=== PATIENT | male | born 1945 | race Two or more races ===

== ENCOUNTER 2017-07-17 13:51 | Inpatient (IN) | payer MEDICARE, MEDICAID ==
[~2017-07-17] VITALS: Ht 177.8 cm; Wt 78.0 kg
[~2017-07-17 13:51] MED LIST: FLUT250M2 INH; LEVO-28 PO; PANT40T PO
[2017-07-17 15:13] LABS: Basophils # (auto) 0 uL; Basophils % (auto) 0.6 % (0.0-2.0); Eosinophils # (auto) 0 uL; Eosinophils % (auto) 0.2 % (0.0-7.0); Hematocrit 50.7 % (41.0-53.0); Hemoglobin 16.4 g/dL (13.5-17.5); Lymphocytes # (auto) 1.1 uL; Lymphocytes % (auto) 16.1 % (10.0-50.0); Mean Corpuscular Hemoglobin 32.3 pg (28.0-32.0); Mean Corpuscular Hgb Conc. 32.3 g/dL (32.0-36.0); Mean Corpuscular Volume 100.1 fL (80.0-100.0); Monocytes # (auto) 0.6 uL; Monocytes % (auto) 9.6 % (0.0-12.0); Neutrophils # (auto) 4.9 uL; Neutrophils % (auto) 73.5 % (37.0-80.0); Nucleated Red Blood Cells % 0.3 %; Platelet Count (auto) 139 10^3/uL (140-450); Red Blood Cells 5.07 10^6/uL (4.5-5.90); Red Cell Distribution Width 17.2 % (11.8-14.3); White Blood Cell 6.7 10^3/uL (4.4-10.8)
[2017-07-17 15:51] LABS: INR 1.24 (0.9-1.15); Partial Thromboplastin Time 26.5 sec (22.64-33.71); Prothrombin Time 13.5 sec (9.37-12.3)
[2017-07-17 15:55] LABS: Potassium 3.6 mmol/L (3.5-5.1)
[2017-07-17 15:57] LABS: Albumin 3.7 g/dL (3.4-5.0); Bilirubin, Total 1.6 mg/dL (0.2-1.0); Magnesium 2.4 mg/dL (1.6-2.6); Total Protein 8.2 g/dL (6.4-8.2)
[2017-07-17] MEDS ORDERED: URSO300C9 PO (15:58)
[2017-07-17] MEDS ORDERED: ASPI81TA27 PO (15:58)
[2017-07-17] MEDS ORDERED: IBUP800T24 PO (15:58)
[2017-07-17] MEDS ORDERED: ESOM0.1C PO (15:58)
[2017-07-17] MEDS ORDERED: ROSU1TAB6 PO (15:58)
[2017-07-17] MEDS ORDERED: FURO40TA4 PO (15:58)
[2017-07-17] MEDS ORDERED: POTA10TA79 PO (15:58)
[2017-07-17] MEDS ORDERED: INSLANTI SC (15:59)
[2017-07-17] MEDS ORDERED: ONDANSETRON HCL 4 MG/2 ML VIAL IV ONE (16:15)
[2017-07-17] MEDS ORDERED: ASPirin-EC 81 mg tab PO ONE (16:15)
[2017-07-17] MEDS ORDERED: MORPHINE SULFATE 4 MG/ML SYR/VIAL IV ONE (16:15)
[2017-07-17] MEDS ORDERED: ZOLPIDEM TARTRATE 5 MG TAB PO PRN (17:00)
[2017-07-17] MEDS ORDERED: LORazepam 0.5 MG TAB PO PRN (17:00)
[2017-07-17] MEDS ORDERED: NITROGLYCERIN 0.4 MG SL TAB SL PRN ×2 (17:00)
[2017-07-17] MEDS ORDERED: MORPHINE SULF INJ 2 MG/ML SYRINGE 1ML IV PRN (17:00)
[2017-07-17] MEDS ORDERED: KETOROLAC TROMETH 30 MG/ML 1ML VIAL IV PRN (17:00)
[2017-07-17] MEDS ORDERED: ACETAMINOPHEN 325 MG TAB PO PRN (17:00)
[2017-07-17] MEDS ORDERED: ALUM & MAG HYDROX-SIMETH LIQ(MAALOX) 30 ML PO ONE (17:00)
[2017-07-17] MEDS ORDERED: PANTOPRAZOLE 40 MG/10 ML VIAL IV ONE (17:15)
[2017-07-17] MEDS ORDERED: DEXTROSE (50%) 50ML SYRG IV PRN (17:15)
[2017-07-17] MEDS ORDERED: POTASSIUM CHL 10 Meq TABLET PO ONE (17:30)
[2017-07-17] MEDS ORDERED: FUROSEMIDE 40 MG TAB PO ONE (17:30)
[2017-07-17] MEDS ORDERED: ALBUTEROL SULF 2.5 MG/0.5ML(0.5%) NEB SOLN NEB SCH (18:00)
[2017-07-17 21:32] VITALS: BP 120/86
[2017-07-17] MEDS: InsuLIN REG 1unit/0.01ml Soln (100units/ml) SC SCH (22:00)
[2017-07-17] MEDS: ENALAPRIL MALEATE 2.5 MG TAB PO SCH (22:00)
[2017-07-17] MEDS: BUDESONIDE (INHALATION) 0.5 MG/2 ML NEB NEB SCH (22:14)
[2017-07-17] MEDS: IPRATROPIUM BROM 0.5 MG/2.5ML INH SOL NEB SCH (22:14)
[2017-07-17] MEDS: SODIUM CHLOR 0.9% PF (SALINE LOCK) 10ML VIAL IV SCH (22:19)
[2017-07-17] MEDS: ENOXAPARIN SOD 80 MG/0.8ML SYRINGE SC SCH (22:19)
[2017-07-17] MEDS: ATORVASTATIN 20 MG TAB PO SCH (22:19)
[2017-07-17] MEDS: CARVEDILOL 3.125 MG TAB PO SCH (22:19)
[2017-07-17] MEDS: ACCU-CHEK COMFORT CURVE STRIP VI SCH (22:19)
[2017-07-18] VITALS (19 sets, daily range): BP systolic 78–97; BP diastolic 40–58
[2017-07-18] MEDS ORDERED: ALBUTEROL SULF 2.5 MG/0.5ML(0.5%) NEB SOLN NEB SCH
[2017-07-18] MEDS: MORPHINE SULFATE 4 MG/ML SYR/VIAL IV PRN ×2 (00:36→09:09)
[2017-07-18] MEDS: ONDANSETRON HCL 4 MG/2 ML VIAL IV PRN ×2 (00:36→09:10)
[2017-07-18] MEDS: BUDESONIDE (INHALATION) 0.5 MG/2 ML NEB NEB SCH ×2 (05:48→22:23)
[2017-07-18] MEDS: ALBUTEROL SULF 2.5 MG/0.5ML(0.5%) NEB SOLN NEB SCH ×3 (05:48→22:23)
[2017-07-18] MEDS: IPRATROPIUM BROM 0.5 MG/2.5ML INH SOL NEB SCH ×3 (05:48→22:23)
[2017-07-18] MEDS: SODIUM CHLOR 0.9% PF (SALINE LOCK) 10ML VIAL IV SCH ×3 (05:52→22:15)
[2017-07-18] MEDS: ACCU-CHEK COMFORT CURVE STRIP VI SCH ×4 (06:05→22:16)
[2017-07-18 06:13] LABS: Basophils # (auto) 0 uL; Basophils % (auto) 0.3 % (0.0-2.0); Eosinophils # (auto) 0 uL; Eosinophils % (auto) 0.1 % (0.0-7.0); Hematocrit 49.7 % (41.0-53.0); Lymphocytes % (auto) 15.4 % (10.0-50.0); Mean Corpuscular Hemoglobin 32.6 pg (28.0-32.0); Mean Corpuscular Hgb Conc. 32.2 g/dL (32.0-36.0); Mean Corpuscular Volume 101.2 fL (80.0-100.0); Monocytes # (auto) 0.9 uL; Monocytes % (auto) 14.3 % (0.0-12.0); Neutrophils # (auto) 4.5 uL; Neutrophils % (auto) 69.9 % (37.0-80.0); Nucleated Red Blood Cells % 0.2 %; Platelet Count (auto) 130 10^3/uL (140-450); Red Blood Cells 4.91 10^6/uL (4.5-5.90); Red Cell Distribution Width 17.5 % (11.8-14.3); White Blood Cell 6.5 10^3/uL (4.4-10.8)
[2017-07-18 06:15] LABS: Albumin 3.2 g/dL (3.4-5.0); Bilirubin, Total 1.5 mg/dL (0.2-1.0); Calcium 8.5 mg/dL (8.5-10.1); Magnesium 2.6 mg/dL (1.6-2.6); Potassium 4.2 mmol/L (3.5-5.1); Total Protein 7.2 g/dL (6.4-8.2)
[2017-07-18] MEDS: InsuLIN REG 1unit/0.01ml Soln (100units/ml) SC SCH ×4 (06:28→22:15)
[2017-07-18] MEDS ORDERED: INSULIN LANTUS (GLARGINE) 1 /0.01ml (100units/ml) SC SCH (07:00)
[2017-07-18] MEDS: CARVEDILOL 3.125 MG TAB PO SCH (10:00)
[2017-07-18] MEDS: POTASSIUM CHL 10 Meq TABLET PO SCH (10:00)
[2017-07-18] MEDS ORDERED: FUROSEMIDE 40 MG TAB PO SCH (10:00)
[2017-07-18] MEDS: ENALAPRIL MALEATE 2.5 MG TAB PO SCH ×2 (10:00→21:57)
[2017-07-18] MEDS: ENOXAPARIN SOD 80 MG/0.8ML SYRINGE SC SCH ×2 (10:29→21:58)
[2017-07-18] MEDS: DOCUSATE SOD 100 MG CAP PO SCH (10:29)
[2017-07-18] MEDS: CLOPIDOGREL BISULFATE 75 MG TAB PO SCH (10:30)
[2017-07-18] MEDS: ASPirin 81 mg TAB PO SCH (10:30)
[2017-07-18] MEDS: PANTOPRAZOLE 40 MG/10 ML VIAL IV SCH (10:31)
[2017-07-18] MEDS ORDERED: FUROSEMIDE 20 MG/2 ML VIAL IV ONE (12:00)
[2017-07-18] MEDS ORDERED: SODIUM BICARBONATE 8.4 % INJ 50ML VIAL IV ONE (12:00)
[2017-07-18] MEDS: DOBUTamine 1000MCG/ML 250 ML IV SCH (13:45)
[2017-07-18] MEDS ORDERED: FUROSEMIDE 40 MG/4 ML VIAL ONE (14:15)
[2017-07-18] MEDS ORDERED: FUROSEMIDE 40 MG/4 ML VIAL IV ONE (14:30)
[2017-07-18] MEDS: FUROSEMIDE 20 MG/2 ML VIAL IV SCH (18:20)
[2017-07-18] MEDS: ATORVASTATIN 20 MG TAB PO SCH (21:57)
[2017-07-18] MEDS ORDERED: ALBUMIN 5% 250 ML IV ONE (22:45)
[2017-07-19] VITALS (54 sets, daily range): BP systolic 74–135; BP diastolic 32–72
[2017-07-19 03:31] LABS: BUN/Creatinine Ratio 16.7; Calcium 8.1 mg/dL (8.5-10.1); Potassium 3.7 mmol/L (3.5-5.1)
[2017-07-19] MEDS: SODIUM CHLOR 0.9% PF (SALINE LOCK) 10ML VIAL IV SCH ×3 (06:00→21:44)
[2017-07-19] MEDS: FUROSEMIDE 20 MG/2 ML VIAL IV SCH ×2 (06:00→17:22)
[2017-07-19] MEDS: INSULIN LANTUS (GLARGINE) 1 /0.01ml (100units/ml) SC SCH (07:00)
[2017-07-19] MEDS ORDERED: FUROSEMIDE 100 MG/10ML VIAL IV ONE (09:00)
[2017-07-19] MEDS: DOCUSATE SOD 100 MG CAP PO SCH (09:49)
[2017-07-19] MEDS: PANTOPRAZOLE 40 MG/10 ML VIAL IV SCH (09:49)
[2017-07-19] MEDS: CLOPIDOGREL BISULFATE 75 MG TAB PO SCH (09:49)
[2017-07-19] MEDS: ENALAPRIL MALEATE 2.5 MG TAB PO SCH (09:49)
[2017-07-19] MEDS: POTASSIUM CHL 10 Meq TABLET PO SCH (09:49)
[2017-07-19] MEDS: ASPirin 81 mg TAB PO SCH (09:50)
[2017-07-19] MEDS: ENOXAPARIN SOD 80 MG/0.8ML SYRINGE SC SCH (09:50)
[2017-07-19] MEDS: BUDESONIDE (INHALATION) 0.5 MG/2 ML NEB NEB SCH ×2 (10:00→22:00)
[2017-07-19] MEDS: DOBUTamine 1000MCG/ML 250 ML IV SCH (10:17)
[2017-07-19] MEDS: IPRATROPIUM BROM 0.5 MG/2.5ML INH SOL NEB SCH ×2 (10:43→22:00)
[2017-07-19] MEDS: ALBUTEROL SULF 2.5 MG/0.5ML(0.5%) NEB SOLN NEB SCH ×2 (10:43→22:00)
[2017-07-19] MEDS: InsuLIN REG 1unit/0.01ml Soln (100units/ml) SC SCH ×3 (11:30→21:54)
[2017-07-19] MEDS ORDERED: FUROSEMIDE 40 MG/4 ML VIAL IV ONE (11:30)
[2017-07-19] MEDS: ACCU-CHEK COMFORT CURVE STRIP VI SCH ×3 (11:30→21:53)
[2017-07-19 16:31] LABS: Potassium 3.5 mmol/L (3.5-5.1)
[2017-07-19 16:36] LABS: Magnesium 2.1 mg/dL (1.6-2.6)
[2017-07-19] MEDS: ATORVASTATIN 20 MG TAB PO SCH (21:44)
[2017-07-20] VITALS (51 sets, daily range): BP systolic 92–142; BP diastolic 46–92
[2017-07-20 03:51] LABS: Basophils # (auto) 0 uL; Basophils % (auto) 0.3 % (0.0-2.0); Eosinophils # (auto) 0 uL; Hematocrit 39.4 % (41.0-53.0); Hemoglobin 13.2 g/dL (13.5-17.5); Lymphocytes # (auto) 0.9 uL; Lymphocytes % (auto) 13.1 % (10.0-50.0); Mean Corpuscular Hemoglobin 32.9 pg (28.0-32.0); Mean Corpuscular Hgb Conc. 33.5 g/dL (32.0-36.0); Mean Corpuscular Volume 98.1 fL (80.0-100.0); Monocytes # (auto) 0.5 uL; Monocytes % (auto) 7.6 % (0.0-12.0); Neutrophils # (auto) 5.2 uL; Nucleated Red Blood Cells % 0.1 %; Platelet Count (auto) 100 10^3/uL (140-450); Red Blood Cells 4.02 10^6/uL (4.5-5.90); Red Cell Distribution Width 16.6 % (11.8-14.3); White Blood Cell 6.6 10^3/uL (4.4-10.8)
[2017-07-20 04:16] LABS: Albumin 2.8 g/dL (3.4-5.0); BUN/Creatinine Ratio 21.8; Bilirubin, Total 1.2 mg/dL (0.2-1.0); Calcium 7.9 mg/dL (8.5-10.1); Magnesium 2.1 mg/dL (1.6-2.6); Phosphorus 2.3 mg/dL (2.5-4.90); Potassium 3.3 mmol/L (3.5-5.1); Total Protein 5.9 g/dL (6.4-8.2)
[2017-07-20 04:17] LABS: Uric Acid 11.6 mg/dL (3.5-7.2)
[2017-07-20] MEDS: SODIUM CHLOR 0.9% PF (SALINE LOCK) 10ML VIAL IV SCH ×3 (06:00→21:36)
[2017-07-20] MEDS: ALBUTEROL SULF 2.5 MG/0.5ML(0.5%) NEB SOLN NEB SCH ×3 (06:05→22:35)
[2017-07-20] MEDS: BUDESONIDE (INHALATION) 0.5 MG/2 ML NEB NEB SCH ×2 (06:05→22:36)
[2017-07-20] MEDS: IPRATROPIUM BROM 0.5 MG/2.5ML INH SOL NEB SCH ×3 (06:05→22:35)
[2017-07-20] MEDS: InsuLIN REG 1unit/0.01ml Soln (100units/ml) SC SCH ×4 (07:00→21:37)
[2017-07-20] MEDS: ACCU-CHEK COMFORT CURVE STRIP VI SCH ×4 (07:00→21:36)
[2017-07-20] MEDS: FUROSEMIDE 20 MG/2 ML VIAL IV SCH ×2 (07:54→17:38)
[2017-07-20] MEDS: INSULIN LANTUS (GLARGINE) 1 /0.01ml (100units/ml) SC SCH (08:04)
[2017-07-20] MEDS: DOBUTamine 1000MCG/ML 250 ML IV SCH (08:34)
[2017-07-20] MEDS: POTASSIUM CHL 10 Meq TABLET PO SCH (09:59)
[2017-07-20] MEDS: PANTOPRAZOLE 40 MG/10 ML VIAL IV SCH (09:59)
[2017-07-20] MEDS: DOCUSATE SOD 100 MG CAP PO SCH (09:59)
[2017-07-20] MEDS: ASPirin 81 mg TAB PO SCH (09:59)
[2017-07-20] MEDS: CLOPIDOGREL BISULFATE 75 MG TAB PO SCH (09:59)
[2017-07-20] MEDS ORDERED: POTASSIUM PHOSPHATE 26.4 MEQ in SODIUM CHL 0.9% 100 ML IV ONE (10:30)
[2017-07-20 11:55] LABS: Urine Bacteria NONE SEEN /hpf (None Seen); Urine Blood 1+ /uL (Negative); Urine Mucus FEW (None Seen); Urine Specific Gravity 1.007 (1.001-1.035); Urine WBC 5 /hpf (0 - 3)
[2017-07-20] MEDS: ATORVASTATIN 20 MG TAB PO SCH (21:36)
[2017-07-21 05:50] LABS: Basophils # (auto) 0 uL; Basophils % (auto) 0.3 % (0.0-2.0); Eosinophils # (auto) 0 uL; Eosinophils % (auto) 0.1 % (0.0-7.0); Hematocrit 41.2 % (41.0-53.0); Hemoglobin 13.7 g/dL (13.5-17.5); Lymphocytes # (auto) 1.4 uL; Lymphocytes % (auto) 19.1 % (10.0-50.0); Mean Corpuscular Hemoglobin 32.4 pg (28.0-32.0); Mean Corpuscular Hgb Conc. 33.3 g/dL (32.0-36.0); Mean Corpuscular Volume 97.1 fL (80.0-100.0); Monocytes # (auto) 0.8 uL; Monocytes % (auto) 11.2 % (0.0-12.0); Neutrophils # (auto) 5.1 uL; Neutrophils % (auto) 69.3 % (37.0-80.0); Nucleated Red Blood Cells % 0.1 %; Platelet Count (auto) 105 10^3/uL (140-450); Red Blood Cells 4.25 10^6/uL (4.5-5.90); Red Cell Distribution Width 16.8 % (11.8-14.3); White Blood Cell 7.4 10^3/uL (4.4-10.8)
[2017-07-21] MEDS: ALBUTEROL SULF 2.5 MG/0.5ML(0.5%) NEB SOLN NEB SCH ×2 (05:59→14:12)
[2017-07-21] MEDS: IPRATROPIUM BROM 0.5 MG/2.5ML INH SOL NEB SCH ×2 (05:59→14:12)
[2017-07-21] MEDS: BUDESONIDE (INHALATION) 0.5 MG/2 ML NEB NEB SCH (05:59)
[2017-07-21] MEDS: FUROSEMIDE 20 MG/2 ML VIAL IV SCH (06:00)
[2017-07-21] MEDS: SODIUM CHLOR 0.9% PF (SALINE LOCK) 10ML VIAL IV SCH ×2 (06:00→14:18)
[2017-07-21 06:23] LABS: Albumin 2.9 g/dL (3.4-5.0); Bilirubin, Total 1.4 mg/dL (0.2-1.0); Calcium 7.9 mg/dL (8.5-10.1); Magnesium 2.1 mg/dL (1.6-2.6); Potassium 3.1 mmol/L (3.5-5.1); Total Protein 6.5 g/dL (6.4-8.2)
[2017-07-21] MEDS: InsuLIN REG 1unit/0.01ml Soln (100units/ml) SC SCH ×3 (06:41→18:05)
[2017-07-21] MEDS: INSULIN LANTUS (GLARGINE) 1 /0.01ml (100units/ml) SC SCH (06:42)
[2017-07-21] MEDS: ACCU-CHEK COMFORT CURVE STRIP VI SCH ×3 (06:43→18:04)
[2017-07-21 08:00] VITALS: BP 100/71
[2017-07-21] MEDS ORDERED: POTASSIUM CHL 20 Meq TABLET PO ONE (09:45)
[2017-07-21] MEDS: DOCUSATE SOD 100 MG CAP PO SCH ×3 (10:00→11:29)
[2017-07-21] MEDS ORDERED: SPIRONOLACTONE 25 MG TAB PO SCH (10:00)
[2017-07-21] MEDS: PANTOPRAZOLE 40 MG/10 ML VIAL IV SCH (10:40)
[2017-07-21] MEDS: CLOPIDOGREL BISULFATE 75 MG TAB PO SCH (10:41)
[2017-07-21] MEDS: ASPirin 81 mg TAB PO SCH (10:41)
[2017-07-21 12:00] VITALS: BP 100/63
[2017-07-21 16:00] VITALS: BP 92/61
[2017-07-21 20:00] VITALS: BP 109/68
[2017-07-21 22:15] VITALS: BP 100/68
[2017-07-22] MEDS ORDERED: FUROSEMIDE 20 MG/2 ML VIAL IV SCH (10:00)
[2017-07-23 09:44] LABS: Hepatitis B Surface Antigen Negative (Negative)
[2017-07-23 10:09] LABS: Hepatitis B Core IgM Negative; Hepatitis C Antibody Negative (Negative)
[2017-07-23 10:11] LABS: Hepatitis A Ab IgM Negative
[2017-07-23 13:47] LABS: Protein, Urine 24.8 mg/dL (0.0-11.9)
== END 2017-07-21 22:15 | disposition short-term general hospital (02) | DRG 280 ==
LOC: ER 13:51 → TELE 13:52 → ICU WEST 07-18 17:15 → DOU IN ICU 07-20 20:37
PROVIDERS: ADMIT Internal Medicine; ATTEND Internal Medicine Pulmonary Disease
DX: I21.4 Non-ST elevation (NSTEMI) myocardial infarction (principal); I50.43 Acute on chronic combined systolic (congestive) and diastolic (congestive) heart failure; N17.0 Acute kidney failure with tubular necrosis; I44.2 Atrioventricular block, complete; E87.2 Acidosis; E11.21 Type 2 diabetes mellitus with diabetic nephropathy; D68.9 Coagulation defect, unspecified; E11.22 Type 2 diabetes mellitus with diabetic chronic kidney disease; N18.3 Chronic kidney disease, stage 3 (moderate); E11.51 Type 2 diabetes mellitus with diabetic peripheral angiopathy without gangrene; I13.0 Hypertensive heart and chronic kidney disease with heart failure and stage 1 through stage 4 chronic kidney disease, or unspecified chronic kidney disease; B17.9 Acute viral hepatitis, unspecified; I95.9 Hypotension, unspecified; E83.39 Other disorders of phosphorus metabolism; E87.6 Hypokalemia; K80.20 Calculus of gallbladder without cholecystitis without obstruction; E79.0 Hyperuricemia without signs of inflammatory arthritis and tophaceous disease; I25.10 Atherosclerotic heart disease of native coronary artery without angina pectoris; I25.5 Ischemic cardiomyopathy; N40.0 Benign prostatic hyperplasia without lower urinary tract symptoms; Z79.4 Long term (current) use of insulin; Z82.49 Family history of ischemic heart disease and other diseases of the circulatory system; Z87.891 Personal history of nicotine dependence; Z95.5 Presence of coronary angioplasty implant and graft; Z95.810 Presence of automatic (implantable) cardiac defibrillator; Z79.899 Other long term (current) drug therapy; Z79.82 Long term (current) use of aspirin; Z90.89 Acquired absence of other organs; Z95.1 Presence of aortocoronary bypass graft
CPT/HCPCS: 36415; 36600; 71046; 71250; 74176; 76705; 76775; 80048; 80053; 80061; 80074; 81001; 82150; 82570; 82805; 82962; 83036; 83690; 83735; 83880; 84100; 84132; 84156; 84300; 84443; 84484; 84550; 85025; 85610; 85730; 87081; 93005; 93306; 94640; 94761; 96361; 96372; 96374; 96375; C9113; J1815; J2405

== ENCOUNTER 2017-07-26 18:57 | Inpatient (IN) | payer MEDICARE, MEDICAID ==
[~2017-07-26] VITALS: Ht 177.8 cm; Wt 76.3 kg
[~2017-07-26 18:57] MED LIST changes: +ASPI81TA27 PO; +ESOM0.1C PO; +FURO40TA4 PO; +IBUP800T24 PO; +INSLANTI SC; +POTA10TA79 PO; +ROSU1TAB6 PO; +URSO300C9 PO
[2017-07-26] MEDS ORDERED: MORPHINE SULFATE 4 MG/ML SYR/VIAL IV PRN (20:45)
[2017-07-26] MEDS ORDERED: NITROGLYCERIN 0.4 MG SL TAB SL PRN (20:45)
[2017-07-26 22:00] VITALS: BP 94/61
[2017-07-26 22:15] VITALS: BP 94/61
[2017-07-26] MEDS ORDERED: ACETAMINOPHEN 325 MG TAB PO PRN (22:30)
[2017-07-26] MEDS ORDERED: TEMAZEPAM 15 MG CAP PO PRN (22:30)
[2017-07-26] MEDS ORDERED: ONDANSETRON HCL 4 MG/2 ML VIAL IV PRN (22:30)
[2017-07-26] MEDS ORDERED: HYDROcodone-ACET 5/325MG TAB PO PRN (22:30)
[2017-07-26] MEDS ORDERED: DEXTROSE (50%) 50ML SYRG IV PRN (22:30)
[2017-07-26] MEDS ORDERED: ATORVASTATIN 20 MG TAB PO ONE (22:30)
[2017-07-26 23:04] LABS: Basophils # (auto) 0 uL; Basophils % (auto) 0.6 % (0.0-2.0); Eosinophils # (auto) 0 uL; Eosinophils % (auto) 0.6 % (0.0-7.0); Hematocrit 40.8 % (41.0-53.0); Hemoglobin 13.3 g/dL (13.5-17.5); Lymphocytes % (auto) 15.3 % (10.0-50.0); Mean Corpuscular Hemoglobin 32.2 pg (28.0-32.0); Mean Corpuscular Hgb Conc. 32.5 g/dL (32.0-36.0); Mean Corpuscular Volume 98.9 fL (80.0-100.0); Monocytes # (auto) 0.7 uL; Monocytes % (auto) 10.8 % (0.0-12.0); Neutrophils # (auto) 4.7 uL; Neutrophils % (auto) 72.7 % (37.0-80.0); Nucleated Red Blood Cells % 0.1 %; Platelet Count (auto) 126 10^3/uL (140-450); Red Blood Cells 4.12 10^6/uL (4.5-5.90); Red Cell Distribution Width 16.8 % (11.8-14.3); White Blood Cell 6.4 10^3/uL (4.4-10.8)
[2017-07-26 23:21] LABS: Albumin 2.8 g/dL (3.4-5.0); BUN/Creatinine Ratio 22.2; Potassium 4.2 mmol/L (3.5-5.1)
[2017-07-26 23:26] LABS: Total Protein 6.3 g/dL (6.4-8.2)
[2017-07-26 23:35] LABS: INR 1.13 (0.9-1.15); Partial Thromboplastin Time 28.9 sec (22.64-33.71); Prothrombin Time 12.3 sec (9.37-12.3)
[2017-07-27 05:00] VITALS: BP 103/68
[2017-07-27] MEDS: ACCU-CHEK COMFORT CURVE STRIP VI SCH ×4 (05:51→17:28)
[2017-07-27] MEDS: InsuLIN REG 1unit/0.01ml Soln (100units/ml) SC SCH ×4 (05:51→17:28)
[2017-07-27] MEDS: FUROSEMIDE 40 MG TAB PO SCH ×2 (06:23→17:33)
[2017-07-27 06:34] LABS: Basophils # (auto) 0 uL; Basophils % (auto) 0.4 % (0.0-2.0); Eosinophils # (auto) 0 uL; Eosinophils % (auto) 0.1 % (0.0-7.0); Hematocrit 42.7 % (41.0-53.0); Hemoglobin 14.1 g/dL (13.5-17.5); Lymphocytes # (auto) 0.9 uL; Lymphocytes % (auto) 10.9 % (10.0-50.0); Mean Corpuscular Hemoglobin 32.8 pg (28.0-32.0); Mean Corpuscular Hgb Conc. 33.1 g/dL (32.0-36.0); Mean Corpuscular Volume 99.1 fL (80.0-100.0); Monocytes # (auto) 0.9 uL; Monocytes % (auto) 11.2 % (0.0-12.0); Neutrophils # (auto) 6.5 uL; Neutrophils % (auto) 77.4 % (37.0-80.0); Nucleated Red Blood Cells % 0.1 %; Platelet Count (auto) 149 10^3/uL (140-450); Red Blood Cells 4.31 10^6/uL (4.5-5.90); Red Cell Distribution Width 16.6 % (11.8-14.3); White Blood Cell 8.4 10^3/uL (4.4-10.8)
[2017-07-27 06:55] LABS: Potassium 4.1 mmol/L (3.5-5.1)
[2017-07-27 07:01] LABS: Albumin 3.1 g/dL (3.4-5.0); BUN/Creatinine Ratio 25.5; Calcium 8.7 mg/dL (8.5-10.1)
[2017-07-27 07:03] LABS: Bilirubin, Total 1.5 mg/dL (0.2-1.0); Total Protein 6.9 g/dL (6.4-8.2)
[2017-07-27 09:00] VITALS: BP 106/65
[2017-07-27] MEDS ORDERED: ASPirin 81 mg TAB PO SCH (10:00)
[2017-07-27] MEDS: ENOXAPARIN SOD 40 MG/0.4 ML SYRINGE SC SCH ×2 (10:00→10:11)
[2017-07-27] MEDS: ASPirin 81 mg TAB PO SCH (10:12)
[2017-07-27] MEDS: SPIRONOLACTONE 25 MG TAB PO SCH (10:12)
[2017-07-27] MEDS: FAMOTIDINE 20 MG TAB PO SCH ×2 (10:12→22:11)
[2017-07-27] MEDS: CLOPIDOGREL BISULFATE 75 MG TAB PO SCH (10:12)
[2017-07-27 13:00] VITALS: BP 106/64
[2017-07-27] MEDS ORDERED: MILRINONE 4 MG in SODIUM CHL 0.9% 50 ML IV ONE (14:00)
[2017-07-27] MEDS: MILRINONE 20MG/100ML 100 ML IV SCH (15:39)
[2017-07-27 16:41] VITALS: BP 109/65
[2017-07-27 20:00] VITALS: BP 91/52
[2017-07-27 21:22] VITALS: BP 91/52
[2017-07-27] MEDS: ATORVASTATIN 20 MG TAB PO SCH (22:11)
[2017-07-27] MEDS: METOPROLOL TARTRATE 25 MG TAB PO SCH (22:12)
[2017-07-28] MEDS: ACCU-CHEK COMFORT CURVE STRIP VI SCH ×5 (00:04→23:43)
[2017-07-28] MEDS: InsuLIN REG 1unit/0.01ml Soln (100units/ml) SC SCH ×5 (00:04→23:51)
[2017-07-28 04:58] VITALS: BP 92/59
[2017-07-28] MEDS: FUROSEMIDE 40 MG TAB PO SCH ×2 (05:40→18:06)
[2017-07-28 08:43] VITALS: BP 103/87
[2017-07-28] MEDS: SPIRONOLACTONE 25 MG TAB PO SCH (09:12)
[2017-07-28] MEDS: ASPirin 81 mg TAB PO SCH (09:12)
[2017-07-28] MEDS: CLOPIDOGREL BISULFATE 75 MG TAB PO SCH (09:12)
[2017-07-28] MEDS: FAMOTIDINE 20 MG TAB PO SCH ×2 (09:13→21:51)
[2017-07-28] MEDS: METOPROLOL TARTRATE 25 MG TAB PO SCH ×2 (09:13→21:51)
[2017-07-28] MEDS: ENOXAPARIN SOD 40 MG/0.4 ML SYRINGE SC SCH (09:14)
[2017-07-28] MEDS: MILRINONE 20MG/100ML 100 ML IV SCH (09:57)
[2017-07-28] MEDS ORDERED: LISINOPRIL 5 MG TAB PO SCH (10:00)
[2017-07-28 13:00] VITALS: BP 97/63
[2017-07-28 16:42] VITALS: BP 87/50
[2017-07-28 20:00] VITALS: BP 90/46
[2017-07-28] MEDS: ATORVASTATIN 20 MG TAB PO SCH (21:51)
[2017-07-28 22:00] VITALS: BP 90/46
[2017-07-29] MEDS: MILRINONE 20MG/100ML 100 ML IV SCH ×2 (04:54→23:37)
[2017-07-29 05:00] VITALS: BP 100/57
[2017-07-29] MEDS: FUROSEMIDE 40 MG TAB PO SCH ×2 (05:47→17:40)
[2017-07-29] MEDS: InsuLIN REG 1unit/0.01ml Soln (100units/ml) SC SCH ×3 (05:48→18:04)
[2017-07-29] MEDS: ACCU-CHEK COMFORT CURVE STRIP VI SCH ×3 (05:48→18:04)
[2017-07-29 06:30] LABS: BUN/Creatinine Ratio 16.3; Calcium 7.9 mg/dL (8.5-10.1); Magnesium 2.1 mg/dL (1.6-2.6); Potassium 3.4 mmol/L (3.5-5.1)
[2017-07-29 08:51] VITALS: BP 108/53
[2017-07-29] MEDS: LISINOPRIL 5 MG TAB PO SCH (10:00)
[2017-07-29] MEDS: SPIRONOLACTONE 25 MG TAB PO SCH (10:00)
[2017-07-29] MEDS: METOPROLOL TARTRATE 25 MG TAB PO SCH ×2 (10:00→22:00)
[2017-07-29] MEDS: ENOXAPARIN SOD 40 MG/0.4 ML SYRINGE SC SCH (10:10)
[2017-07-29] MEDS: CLOPIDOGREL BISULFATE 75 MG TAB PO SCH (10:10)
[2017-07-29] MEDS: FAMOTIDINE 20 MG TAB PO SCH ×2 (10:10→21:59)
[2017-07-29] MEDS: ASPirin 81 mg TAB PO SCH (10:10)
[2017-07-29 12:30] VITALS: BP 105/62
[2017-07-29] MEDS ORDERED: POTASSIUM CHL 20 Meq TABLET PO ONE (14:30)
[2017-07-29 16:46] VITALS: BP 105/50
[2017-07-29 20:00] VITALS: BP 146/89
[2017-07-29 21:31] VITALS: BP 146/89
[2017-07-29] MEDS: ATORVASTATIN 20 MG TAB PO SCH (21:59)
[2017-07-30] MEDS: InsuLIN REG 1unit/0.01ml Soln (100units/ml) SC SCH ×5 (00:29→23:41)
[2017-07-30] MEDS: ACCU-CHEK COMFORT CURVE STRIP VI SCH ×5 (00:29→23:40)
[2017-07-30 05:10] VITALS: BP 99/61
[2017-07-30] MEDS: FUROSEMIDE 40 MG TAB PO SCH ×2 (06:32→17:57)
[2017-07-30 07:59] VITALS: BP 110/70
[2017-07-30 08:00] VITALS: BP 110/70
[2017-07-30] MEDS: SPIRONOLACTONE 25 MG TAB PO SCH (09:50)
[2017-07-30] MEDS: FAMOTIDINE 20 MG TAB PO SCH ×2 (09:50→21:29)
[2017-07-30] MEDS: ASPirin 81 mg TAB PO SCH (09:50)
[2017-07-30] MEDS: CLOPIDOGREL BISULFATE 75 MG TAB PO SCH (09:50)
[2017-07-30] MEDS: LISINOPRIL 5 MG TAB PO SCH (09:51)
[2017-07-30] MEDS: ENOXAPARIN SOD 40 MG/0.4 ML SYRINGE SC SCH ×2 (09:51→10:00)
[2017-07-30] MEDS: METOPROLOL TARTRATE 25 MG TAB PO SCH ×2 (10:00→21:29)
[2017-07-30 12:47] VITALS: BP 110/57
[2017-07-30] MEDS ORDERED: MILRINONE 20MG/100ML 100 ML IV SCH (13:15)
[2017-07-30 17:26] VITALS: BP 112/71
[2017-07-30] MEDS: ATORVASTATIN 20 MG TAB PO SCH (21:29)
[2017-07-30 22:00] VITALS: BP 91/54
[2017-07-31 05:00] VITALS: BP 101/67
[2017-07-31] MEDS: FUROSEMIDE 40 MG TAB PO SCH ×2 (05:36→18:16)
[2017-07-31] MEDS: InsuLIN REG 1unit/0.01ml Soln (100units/ml) SC SCH ×4 (05:44→23:39)
[2017-07-31] MEDS: ACCU-CHEK COMFORT CURVE STRIP VI SCH ×4 (05:44→23:30)
[2017-07-31 08:26] VITALS: BP 98/59
[2017-07-31] MEDS: LISINOPRIL 5 MG TAB PO SCH (10:00)
[2017-07-31] MEDS: METOPROLOL TARTRATE 25 MG TAB PO SCH ×2 (10:00→22:22)
[2017-07-31] MEDS: CLOPIDOGREL BISULFATE 75 MG TAB PO SCH (10:20)
[2017-07-31] MEDS: FAMOTIDINE 20 MG TAB PO SCH ×2 (10:20→22:22)
[2017-07-31] MEDS: SPIRONOLACTONE 25 MG TAB PO SCH (10:20)
[2017-07-31] MEDS: ASPirin 81 mg TAB PO SCH (10:20)
[2017-07-31 12:00] VITALS: BP 97/57
[2017-07-31] MEDS ORDERED: POTASSIUM CHL 20 Meq TABLET PO ONE (12:45)
[2017-07-31] MEDS ORDERED: AMIODARONE HCL 200 MG TAB PO ONE (12:45)
[2017-07-31 13:30] LABS: Magnesium 2.3 mg/dL (1.6-2.6); Potassium 3.8 mmol/L (3.5-5.1)
[2017-07-31 17:17] VITALS: BP 95/64
[2017-07-31 22:00] VITALS: BP 105/64
[2017-07-31] MEDS: POTASSIUM CHL 20 Meq TABLET PO SCH (22:21)
[2017-07-31] MEDS: ATORVASTATIN 20 MG TAB PO SCH (22:21)
[2017-08-01 04:56] VITALS: BP 98/63
[2017-08-01] MEDS: ACCU-CHEK COMFORT CURVE STRIP VI SCH ×2 (05:34→11:40)
[2017-08-01] MEDS: InsuLIN REG 1unit/0.01ml Soln (100units/ml) SC SCH ×2 (05:35→11:40)
[2017-08-01] MEDS: FUROSEMIDE 40 MG TAB PO SCH (05:35)
[2017-08-01 08:00] VITALS: BP 106/66
[2017-08-01 08:58] VITALS: BP 106/66
[2017-08-01] MEDS: CLOPIDOGREL BISULFATE 75 MG TAB PO SCH (09:57)
[2017-08-01] MEDS: FAMOTIDINE 20 MG TAB PO SCH (09:57)
[2017-08-01] MEDS: SPIRONOLACTONE 25 MG TAB PO SCH (09:58)
[2017-08-01] MEDS: LISINOPRIL 5 MG TAB PO SCH (09:59)
[2017-08-01] MEDS: METOPROLOL TARTRATE 25 MG TAB PO SCH (09:59)
[2017-08-01] MEDS ORDERED: ASPirin 81 mg TAB PO SCH (10:00)
[2017-08-01] MEDS ORDERED: AMIODARONE HCL 200 MG TAB PO SCH (10:00)
[2017-08-01] MEDS: POTASSIUM CHL 20 Meq TABLET PO SCH (10:01)
[2017-08-01 12:40] VITALS: BP 100/55
[2017-08-01 13:10] VITALS: BP 100/55
== END 2017-08-01 17:45 | disposition hospice, home (50) | DRG 291 ==
LOC: TELE-WESTW 18:57
PROVIDERS: ADMIT Internal Medicine Pulmonary Disease; ATTEND Internal Medicine
DX: I13.0 Hypertensive heart and chronic kidney disease with heart failure and stage 1 through stage 4 chronic kidney disease, or unspecified chronic kidney disease (principal); I50.23 Acute on chronic systolic (congestive) heart failure; E11.21 Type 2 diabetes mellitus with diabetic nephropathy; I95.9 Hypotension, unspecified; Z95.1 Presence of aortocoronary bypass graft; E11.22 Type 2 diabetes mellitus with diabetic chronic kidney disease; K80.20 Calculus of gallbladder without cholecystitis without obstruction; N18.2 Chronic kidney disease, stage 2 (mild); Z51.5 Encounter for palliative care; I25.5 Ischemic cardiomyopathy; I25.10 Atherosclerotic heart disease of native coronary artery without angina pectoris; I25.2 Old myocardial infarction; Z86.79 Personal history of other diseases of the circulatory system; Z95.810 Presence of automatic (implantable) cardiac defibrillator; Z98.61 Coronary angioplasty status; Z79.4 Long term (current) use of insulin; Z79.82 Long term (current) use of aspirin; Z79.899 Other long term (current) drug therapy; Z71.3 Dietary counseling and surveillance
CPT/HCPCS: 36415; 71045; 80048; 80053; 82962; 83735; 83880; 84132; 84484; 85025; 85610; 85730; 87081; J1815

== ENCOUNTER 2018-04-08 01:29 | Inpatient (IN) | payer OTHER, MEDICAID ==
[~2018-04-08] VITALS: Ht 177.8 cm; Wt 78.8 kg
[~2018-04-08 01:29] MED LIST changes: +ROSU1TAB10 PO; -ROSU1TAB6 PO
[2018-04-08 02:08] LABS: Basophils # (auto) 0.1 uL; Basophils % (auto) 0.9 % (0.0-2.0); Eosinophils # (auto) 0.1 uL; Hematocrit 34.7 % (41.0-53.0); Hemoglobin 11.7 g/dL (13.5-17.5); Lymphocytes # (auto) 0.8 uL; Lymphocytes % (auto) 10.8 % (10.0-50.0); Mean Corpuscular Hemoglobin 33.4 pg (28.0-32.0); Mean Corpuscular Hgb Conc. 33.5 g/dL (32.0-36.0); Mean Corpuscular Volume 99.5 fL (80.0-100.0); Monocytes # (auto) 0.8 uL; Monocytes % (auto) 10.4 % (0.0-12.0); Neutrophils # (auto) 5.9 uL; Neutrophils % (auto) 76.9 % (37.0-80.0); Platelet Count (auto) 169 10^3/uL (140-450); Red Blood Cells 3.49 10^6/uL (4.5-5.90); Red Cell Distribution Width 13.6 % (11.8-14.3); White Blood Cell 7.7 10^3/uL (4.4-10.8)
[2018-04-08] MEDS ORDERED: NITROGLYCERIN 0.2MG/HR TOPICAL PATCH TD ONE (02:15)
[2018-04-08] MEDS ORDERED: ASPirin 81 mg TAB PO ONE (02:15)
[2018-04-08 02:31] LABS: Albumin 3.7 g/dL (3.4-5.0); BUN/Creatinine Ratio 23.4; Calcium 8.4 mg/dL (8.5-10.1); Magnesium 2.6 mg/dL (1.6-2.6); Potassium 4.3 mmol/L (3.5-5.1)
[2018-04-08 02:36] LABS: Bilirubin, Total 0.6 mg/dL (0.2-1.0); Total Protein 7.6 g/dL (6.4-8.2)
[2018-04-08 02:41] LABS: INR 0.93 (0.9-1.15); Partial Thromboplastin Time 27.1 sec (23.78-33.04)
[2018-04-08 02:43] LABS: Urine WBC None Seen /hpf (0 - 3)
[2018-04-08 03:11] LABS: Urine Bacteria NONE SEEN /hpf (None Seen); Urine Blood Negative /uL (Negative); Urine Specific Gravity 1.006 (1.001-1.035)
[2018-04-08] MEDS ORDERED: MORPHINE SULFATE 4 MG/ML SYR/VIAL IV PRN (05:45)
[2018-04-08] MEDS ORDERED: NITROGLYCERIN 0.4 MG SL TAB SL PRN (05:45)
[2018-04-08] MEDS ORDERED: SODIUM CHLORIDE 0.9% 250 ML IV ONE (06:00)
[2018-04-08] MEDS ORDERED: DEXTROSE (50%) 50ML SYRG IV PRN (06:00)
[2018-04-08] MEDS ORDERED: LISI2.5T47 PO (06:44)
[2018-04-08] MEDS ORDERED: AMIO200T33 PO (06:44)
[2018-04-08] MEDS ORDERED: POTA20TA53 PO (06:44)
[2018-04-08] MEDS ORDERED: ATOR20TA50 PO (06:44)
[2018-04-08] MEDS ORDERED: CLOP75TA41 PO (06:44)
[2018-04-08] MEDS ORDERED: METO25TA5 PO (06:44)
[2018-04-08] MEDS ORDERED: SPIR25TA8 PO (06:44)
[2018-04-08] MEDS ORDERED: FAMO-12 PO (06:44)
[2018-04-08] MEDS: InsuLIN REG 1unit/0.01ml Soln (100units/ml) SC SCH ×4 (06:59→22:33)
[2018-04-08] MEDS: ACCU-CHEK COMFORT CURVE STRIP VI SCH ×4 (07:00→22:00)
[2018-04-08] MEDS: ASPirin-EC 81 mg tab PO SCH (09:38)
[2018-04-08] MEDS: CLOPIDOGREL BISULFATE 75 MG TAB PO SCH (09:38)
[2018-04-08] MEDS: AMIODARONE HCL 200 MG TAB PO SCH (09:42)
[2018-04-08 12:05] VITALS: BP 111/54
[2018-04-08] MEDS ORDERED: LEVOTHYROXINE SODIUM 25 MCG TAB PO ONE (13:00)
[2018-04-08] MEDS ORDERED: PNEUMOCOCCAL VACC POLYS 25 MCG/0.5 ML VIAL IM ONE (15:45)
[2018-04-08] MEDS ORDERED: INFLUENZA QUAD 2018-2019 0.5 ML SYRG IM ONE (15:45)
[2018-04-08 16:42] VITALS: BP 97/52
[2018-04-08 20:00] VITALS: BP 106/58
[2018-04-08] MEDS ORDERED: ATORVASTATIN 20 MG TAB PO SCH (22:00)
[2018-04-08 22:29] VITALS: BP 106/58
[2018-04-08] MEDS: ATORVASTATIN 20 MG TAB PO SCH (22:32)
[2018-04-08] MEDS: ACETAMINOPHEN 500 MG TAB PO PRN (22:51)
[2018-04-09 05:17] VITALS: BP 92/58
[2018-04-09] MEDS: ACCU-CHEK COMFORT CURVE STRIP VI SCH ×4 (06:36→21:49)
[2018-04-09] MEDS: InsuLIN REG 1unit/0.01ml Soln (100units/ml) SC SCH ×4 (06:36→21:49)
[2018-04-09] MEDS: LEVOTHYROXINE SODIUM 25 MCG TAB PO SCH (06:36)
[2018-04-09 06:59] LABS: Basophils # (auto) 0.1 uL; Eosinophils # (auto) 0.1 uL; Monocytes # (auto) 0.8 uL; Neutrophils # (auto) 5.6 uL; White Blood Cell 7.3 10^3/uL (4.4-10.8)
[2018-04-09 07:00] LABS: BUN/Creatinine Ratio 17.8; Calcium 8.9 mg/dL (8.5-10.1); Potassium 4.2 mmol/L (3.5-5.1)
[2018-04-09 07:06] LABS: Basophils % (auto) 0.8 % (0.0-2.0); Eosinophils % (auto) 1.1 % (0.0-7.0); Hematocrit 36.9 % (41.0-53.0); Hemoglobin 12.5 g/dL (13.5-17.5); Lymphocytes # (auto) 0.7 uL; Lymphocytes % (auto) 9.9 % (10.0-50.0); Mean Corpuscular Hemoglobin 33.8 pg (28.0-32.0); Mean Corpuscular Hgb Conc. 33.8 g/dL (32.0-36.0); Monocytes % (auto) 11.4 % (0.0-12.0); Neutrophils % (auto) 76.8 % (37.0-80.0); Platelet Count (auto) 180 10^3/uL (140-450); Red Blood Cells 3.69 10^6/uL (4.5-5.90); Red Cell Distribution Width 13.5 % (11.8-14.3)
[2018-04-09 09:23] VITALS: BP 129/63
[2018-04-09] MEDS: AMIODARONE HCL 200 MG TAB PO SCH (11:01)
[2018-04-09] MEDS: ASPirin-EC 81 mg tab PO SCH (11:01)
[2018-04-09] MEDS: CLOPIDOGREL BISULFATE 75 MG TAB PO SCH (11:02)
[2018-04-09] MEDS: ACETAMINOPHEN 500 MG TAB PO PRN (13:35)
[2018-04-09 17:46] VITALS: BP 105/55
[2018-04-09] MEDS: ATORVASTATIN 20 MG TAB PO SCH (21:40)
[2018-04-09 23:11] VITALS: BP 107/66
[2018-04-10 05:35] VITALS: BP 117/72
[2018-04-10] MEDS: LEVOTHYROXINE SODIUM 25 MCG TAB PO SCH (06:35)
[2018-04-10] MEDS: ACCU-CHEK COMFORT CURVE STRIP VI SCH (06:44)
[2018-04-10] MEDS: InsuLIN REG 1unit/0.01ml Soln (100units/ml) SC SCH (06:44)
[2018-04-10 09:00] VITALS: BP 118/68
[2018-04-10] MEDS ORDERED: DOCUSATE SOD 100 MG CAP PO ONE (10:30)
[2018-04-10] MEDS: AMIODARONE HCL 200 MG TAB PO SCH (10:56)
[2018-04-10] MEDS: ASPirin-EC 81 mg tab PO SCH (10:57)
[2018-04-10] MEDS: CLOPIDOGREL BISULFATE 75 MG TAB PO SCH (10:57)
[2018-04-10 11:44] VITALS: BP 118/68
== END 2018-04-10 12:43 | disposition hospice, home (50) | DRG 281 ==
LOC: ER 01:29 → EDBD 01:29 → TELE 01:30 → TELE-CENTR 12:07
PROVIDERS: ADMIT Nurse Practitioner Family; ATTEND Internal Medicine
DX: I21.4 Non-ST elevation (NSTEMI) myocardial infarction (principal); I42.9 Cardiomyopathy, unspecified; I13.0 Hypertensive heart and chronic kidney disease with heart failure and stage 1 through stage 4 chronic kidney disease, or unspecified chronic kidney disease; I50.84 End stage heart failure; N18.3 Chronic kidney disease, stage 3 (moderate); R74.8 Abnormal levels of other serum enzymes; E11.65 Type 2 diabetes mellitus with hyperglycemia; E11.22 Type 2 diabetes mellitus with diabetic chronic kidney disease; D64.9 Anemia, unspecified; E03.9 Hypothyroidism, unspecified; I25.5 Ischemic cardiomyopathy; K80.20 Calculus of gallbladder without cholecystitis without obstruction; Z51.5 Encounter for palliative care; Z79.4 Long term (current) use of insulin; Z79.899 Other long term (current) drug therapy; Z79.51 Long term (current) use of inhaled steroids; Z79.890 Hormone replacement therapy; Z82.49 Family history of ischemic heart disease and other diseases of the circulatory system; Z83.3 Family history of diabetes mellitus; Z87.891 Personal history of nicotine dependence; Z95.1 Presence of aortocoronary bypass graft; Z95.810 Presence of automatic (implantable) cardiac defibrillator; I25.119 Atherosclerotic heart disease of native coronary artery with unspecified angina pectoris; E11.51 Type 2 diabetes mellitus with diabetic peripheral angiopathy without gangrene; Z81.1 Family history of alcohol abuse and dependence
CPT/HCPCS: 36415; 71045; 80048; 80053; 81001; 82962; 83036; 83735; 83880; 84443; 84484; 85025; 85610; 85730; 93005; G0378; J1815

== ENCOUNTER 2018-05-12 19:13 | Inpatient (IN) | payer OTHER, MEDICAID ==
[~2018-05-12] VITALS: Ht 167.6 cm; Wt 68.0 kg
[~2018-05-12 19:13] MED LIST changes: +AMIO200T33 PO; +ATOR20TA50 PO; +CLOP75TA41 PO; +FAMO-12 PO; +LISI2.5T47 PO; +METO25TA5 PO; +POTA20TA53 PO; +SPIR25TA8 PO
[2018-05-12 20:04] LABS: Basophils # (auto) 0 uL; Basophils % (auto) 0.5 % (0.0-2.0); Eosinophils # (auto) 0 uL; Eosinophils % (auto) 0.6 % (0.0-7.0); Hematocrit 35.2 % (41.0-53.0); Hemoglobin 11.9 g/dL (13.5-17.5); Lymphocytes # (auto) 0.6 uL; Lymphocytes % (auto) 8.9 % (10.0-50.0); Mean Corpuscular Hemoglobin 33.8 pg (28.0-32.0); Mean Corpuscular Hgb Conc. 33.8 g/dL (32.0-36.0); Monocytes # (auto) 1.1 uL; Monocytes % (auto) 16.4 % (0.0-12.0); Neutrophils % (auto) 73.6 % (37.0-80.0); Platelet Count (auto) 188 10^3/uL (140-450); Red Blood Cells 3.52 10^6/uL (4.5-5.90); Red Cell Distribution Width 13.6 % (11.8-14.3); White Blood Cell 6.8 10^3/uL (4.4-10.8)
[2018-05-12 20:08] LABS: Albumin 3.6 g/dL (3.4-5.0); Calcium 8.3 mg/dL (8.5-10.1); Potassium 4.8 mmol/L (3.5-5.1)
[2018-05-12 20:14] LABS: BUN/Creatinine Ratio 21.8; Bilirubin, Total 0.7 mg/dL (0.2-1.0); Total Protein 7.6 g/dL (6.4-8.2)
[2018-05-12 20:24] LABS: INR 0.95 (0.9-1.15); Partial Thromboplastin Time 27.1 sec (23.78-33.04); Prothrombin Time 10.2 sec (9.27-12.13)
[2018-05-12] MEDS ORDERED: FUROSEMIDE 40 MG/4 ML VIAL IV ONE (22:45)
[2018-05-12] MEDS ORDERED: MORPHINE SULFATE 4 MG/ML SYR/VIAL IV PRN (23:15)
[2018-05-12] MEDS ORDERED: DEXTROSE (50%) 50ML SYRG IV PRN (23:15)
[2018-05-12] MEDS ORDERED: NITROGLYCERIN 0.4 MG SL TAB SL PRN (23:15)
[2018-05-13 01:03] LABS: BUN/Creatinine Ratio 23.1; Calcium 8.5 mg/dL (8.5-10.1); Potassium 4.4 mmol/L (3.5-5.1)
[2018-05-13 01:34] VITALS: BP 97/57
[2018-05-13] MEDS ORDERED: ISOS20TA49 PO (02:49)
[2018-05-13] MEDS ORDERED: PNEUMOCOCCAL VACC POLYS 25 MCG/0.5 ML VIAL IM ONE (04:00)
[2018-05-13 05:00] VITALS: BP 96/53
[2018-05-13 05:41] LABS: Mean Corpuscular Hemoglobin 33.9 pg (28.0-32.0); Mean Corpuscular Hgb Conc. 34.4 g/dL (32.0-36.0); Mean Corpuscular Volume 98.6 fL (80.0-100.0); Platelet Count (auto) 182 10^3/uL (140-450); Red Blood Cells 3.55 10^6/uL (4.5-5.90); Red Cell Distribution Width 13.8 % (11.8-14.3)
[2018-05-13 06:01] LABS: Blast Cells 0; Metamyelocytes % 0; Myelocytes % 0; Promyelocytes % 0; Reactive Lymphocytes 0
[2018-05-13] MEDS: InsuLIN REG 1unit/0.01ml Soln (100units/ml) SC SCH ×2 (06:16→11:40)
[2018-05-13] MEDS: ACCU-CHEK COMFORT CURVE STRIP VI SCH ×2 (06:16→11:40)
[2018-05-13] MEDS ORDERED: LEVOTHYROXINE SODIUM 25 MCG TAB PO SCH (07:00)
[2018-05-13] MEDS ORDERED: INSULIN LANTUS (GLARGINE) 1 /0.01ml (100units/ml) SC SCH (07:00)
[2018-05-13 08:35] VITALS: BP 91/51
[2018-05-13 09:13] LABS: Band Neutrophils % (manual) 3; Basophils % (manual) 2 (0.0-2.0); Eosinophils % (manual) 4 (0-7); Lymphocytes % (manual) 16 (10.0-50.0); Monocytes % (manual) 8 (0-12)
[2018-05-13] MEDS ORDERED: FAMOTIDINE 20 MG TAB PO SCH (10:00)
[2018-05-13] MEDS ORDERED: AMIODARONE HCL 200 MG TAB PO SCH (10:00)
[2018-05-13] MEDS ORDERED: SPIRONOLACTONE 25 MG TAB PO SCH (10:00)
[2018-05-13] MEDS ORDERED: METOPROLOL TARTRATE 25 MG TAB PO SCH (10:00)
[2018-05-13] MEDS ORDERED: CLOPIDOGREL BISULFATE 75 MG TAB PO SCH (10:00)
[2018-05-13] MEDS ORDERED: ASPirin-EC 81 mg tab PO SCH (10:00)
[2018-05-13] MEDS ORDERED: LISINOPRIL 5 MG TAB PO SCH (10:00)
[2018-05-13 13:19] VITALS: BP 92/51
[2018-05-13 13:20] VITALS: BP 91/51
[2018-05-13 16:40] VITALS: BP 102/63
[2018-05-13] MEDS ORDERED: ATORVASTATIN 20 MG TAB PO SCH (22:00)
== END 2018-05-13 17:45 | disposition hospice, home (50) | DRG 280 ==
LOC: EDBD 19:13 → ER 19:13 → TELE 23:14 → TELE-WESTW 23:47
PROVIDERS: ADMIT Nurse Practitioner Family; ATTEND Internal Medicine
DX: I21.4 Non-ST elevation (NSTEMI) myocardial infarction (principal); I50.43 Acute on chronic combined systolic (congestive) and diastolic (congestive) heart failure; E87.1 Hypo-osmolality and hyponatremia; N17.9 Acute kidney failure, unspecified; I13.0 Hypertensive heart and chronic kidney disease with heart failure and stage 1 through stage 4 chronic kidney disease, or unspecified chronic kidney disease; E11.51 Type 2 diabetes mellitus with diabetic peripheral angiopathy without gangrene; I25.119 Atherosclerotic heart disease of native coronary artery with unspecified angina pectoris; E11.22 Type 2 diabetes mellitus with diabetic chronic kidney disease; E03.9 Hypothyroidism, unspecified; E11.65 Type 2 diabetes mellitus with hyperglycemia; E78.5 Hyperlipidemia, unspecified; I25.5 Ischemic cardiomyopathy; N18.3 Chronic kidney disease, stage 3 (moderate); K80.20 Calculus of gallbladder without cholecystitis without obstruction; Z51.5 Encounter for palliative care; I25.2 Old myocardial infarction; Z79.4 Long term (current) use of insulin; Z79.51 Long term (current) use of inhaled steroids; Z82.49 Family history of ischemic heart disease and other diseases of the circulatory system; Z83.3 Family history of diabetes mellitus; Z87.891 Personal history of nicotine dependence; Z95.1 Presence of aortocoronary bypass graft; Z95.810 Presence of automatic (implantable) cardiac defibrillator; Z28.21 Immunization not carried out because of patient refusal
CPT/HCPCS: 36415; 71045; 80048; 80053; 82962; 83735; 83880; 84443; 84484; 85007; 85025; 85027; 85379; 85610; 85730; 93005; 96374; G0378; J1815

== ENCOUNTER 2018-11-05 18:47 | Inpatient (IN) | payer OTHER, MEDICAID | END 2018-11-08 17:00 | disposition home or self-care (01) | LOC: TELE 11-06 03:32 → TELE-WESTW 11-06 05:13 → ER 18:47 | DX: I25.119 Atherosclerotic heart disease of native coronary artery with unspecified angina pectoris (principal); E44.0 Moderate protein-calorie malnutrition; E87.1 Hypo-osmolality and hyponatremia; I13.0 Hypertensive heart and chronic kidney disease with heart failure and stage 1 through stage 4 chronic kidney disease, or unspecified chronic kidney disease ==

== ENCOUNTER 2019-03-17 22:58 | Inpatient (IN) | payer OTHER, MEDICAID ==
[~2019-03-17] VITALS: Ht 165.1 cm; Wt 61.2 kg
[~2019-03-17 22:58] MED LIST changes: +ASPI-404 PO; -ASPI81TA27 PO; +ISOS20TA49 PO; -LEVO-28 PO; +LEVO75TA6; -POTA20TA53 PO; -ROSU1TAB10 PO; +ROSU1TAB14 PO
[2019-03-17 23:37] LABS: Basophils # (auto) 0 uL; Basophils % (auto) 0.2 % (0.0-2.0); Eosinophils # (auto) 0 uL; Hematocrit 43.8 % (41.0-53.0); Hemoglobin 14.2 g/dL (13.5-17.5); Lymphocytes # (auto) 0.7 uL; Lymphocytes % (auto) 8.2 % (10.0-50.0); Mean Corpuscular Hemoglobin 34.4 pg (28.0-32.0); Mean Corpuscular Hgb Conc. 32.4 g/dL (32.0-36.0); Mean Corpuscular Volume 106.3 fL (80.0-100.0); Monocytes # (auto) 0.8 uL; Monocytes % (auto) 9.9 % (0.0-12.0); Neutrophils # (auto) 6.5 uL; Neutrophils % (auto) 81.7 % (37.0-80.0); Nucleated Red Blood Cells % 0.3 %; Platelet Count (auto) 173 10^3/uL (140-450); Red Blood Cells 4.12 10^6/uL (4.5-5.90); Red Cell Distribution Width 19.9 % (11.8-14.3)
[2019-03-17] MEDS ORDERED: HYDROmorphone HCL 2 MG/ML VL IV ONE (23:45)
[2019-03-17 23:50] LABS: Albumin 2.1 g/dL (3.4-5.0); Anion Gap 15 (5-15); Blood Urea Nitrogen 35 mg/dL (7-18); Carbon Dioxide 13 mmol/L (21-32); Chloride 104 mmol/L (98-107); Glucose 117 mg/dL (74-106); INR 1.37 (0.9-1.15); Partial Thromboplastin Time 30.5 sec (23.64-32.05); Sodium 132 mmol/L (136-145)
[2019-03-17 23:52] LABS: Alanine Aminotransferase 234 U/L (16-61); Aspartate Aminotransferase 470 U/L (15-37); BUN/Creatinine Ratio 15.9; GFR African American 38 mL/min; GFR Non-African American 31 mL/min
[2019-03-17 23:55] LABS: Alkaline Phosphatase 146 U/L (45-117); Bilirubin, Total 3.4 mg/dL (0.2-1.0)
[2019-03-17 23:56] LABS: Potassium 5.6 mmol/L (3.5-5.1)
[2019-03-18] VITALS (13 sets, daily range): BP systolic 46–150; BP diastolic 21–101
[2019-03-18] MEDS ORDERED: FUROSEMIDE 20 MG/2 ML VIAL IV ONE (02:00)
[2019-03-18] MEDS ORDERED: DEXTROSE (50%) 50ML SYRG IV PRN (02:45)
[2019-03-18] MEDS ORDERED: ONDANSETRON HCL 4 MG/2 ML VIAL IV PRN (02:45)
[2019-03-18] MEDS ORDERED: NITROGLYCERIN 0.4 MG SL TAB SL PRN (02:45)
[2019-03-18] MEDS ORDERED: MORPHINE SULF INJ 2 MG/ML SYRINGE 1ML IV PRN (02:45)
[2019-03-18] MEDS ORDERED: FUROSEMIDE 40 MG/4 ML VIAL IV ONE (03:15)
[2019-03-18] MEDS ORDERED: ALBUMIN 25% 50 ML IV ONE (03:15)
[2019-03-18] MEDS ORDERED: PHENYLEPHRINE IV 250 ML IV ONE ×2 (04:49→15:35)
[2019-03-18] MEDS ORDERED: IPRATROPIUM BROM 0.5 MG/2.5ML INH SOL ONE (05:11)
[2019-03-18] MEDS ORDERED: ALBUTEROL SULF 2.5 MG/0.5ML(0.5%) NEB SOLN ONE (05:11)
[2019-03-18] MEDS: FUROSEMIDE 40 MG/4 ML VIAL IV SCH ×2 (06:00→18:00)
[2019-03-18] MEDS ORDERED: PANTOPRAZOLE 40 MG TAB PO SCH (06:00)
[2019-03-18] MEDS ORDERED: LEVOTHYROXINE SODIUM 25 MCG TAB PO SCH (06:00)
[2019-03-18] MEDS ORDERED: InsuLIN REG 1unit/0.01ml Soln (100units/ml) SC SCH (06:00)
[2019-03-18] MEDS: ACCU-CHEK COMFORT CURVE STRIP VI SCH ×3 (06:00→18:33)
[2019-03-18] MEDS: PHENYLEPHRINE INJ 20 MG in D5W 5% 250 ML IV SCH ×2 (06:27→15:00)
[2019-03-18] MEDS: ALBUTEROL SULF 2.5 MG/0.5ML(0.5%) NEB SOLN NEB SCH ×2 (06:35→12:15)
[2019-03-18] MEDS: IPRATROPIUM BROM 0.5 MG/2.5ML INH SOL NEB SCH ×2 (06:35→12:15)
[2019-03-18] MEDS ORDERED: TEMAZEPAM 15 MG CAP PO PRN (09:00)
[2019-03-18] MEDS ORDERED: AMIODARONE HCL 200 MG TAB PO SCH (10:00)
[2019-03-18] MEDS ORDERED: URSODIOL 300 MG CAP PO SCH (10:00)
[2019-03-18] MEDS ORDERED: CLOPIDOGREL BISULFATE 75 MG TAB PO SCH (10:00)
[2019-03-18] MEDS ORDERED: ISOSORBIDE MONONITRATE ER 60 MG TAB PO SCH (10:00)
[2019-03-18] MEDS ORDERED: ASPirin 81 mg TAB PO SCH (10:00)
[2019-03-18] MEDS ORDERED: LACTULOSE 20Gm/30ML SOLN PO SCH (10:00)
[2019-03-18] MEDS ORDERED: ALBUMIN 5% 250 ML IV ONE (10:30)
[2019-03-18] MEDS ORDERED: PANTOPRAZOLE 40 MG/10 ML VIAL INJ IV ONE (10:45)
[2019-03-18 12:41] LABS: BUN/Creatinine Ratio 15.8; Bilirubin, Total 4.3 mg/dL (0.2-1.0); Calcium 8.4 mg/dL (8.5-10.1); Total Protein 9.8 g/dL (6.4-8.2)
[2019-03-18 12:42] LABS: Albumin 2.2 g/dL (3.4-5.0)
[2019-03-18 12:49] LABS: Potassium 6.1 mmol/L (3.5-5.1)
[2019-03-18] MEDS ORDERED: ALBUTEROL SULF 2.5 MG/0.5ML(0.5%) NEB SOLN NEB STA (13:27)
[2019-03-18] MEDS ORDERED: SODIUM ZIRCONIUM CYCL 10 GM PAK PO ONE ×2 (13:30)
[2019-03-18] MEDS ORDERED: SODIUM BICARBONATE 8.4% INJ 50ML SYRINGE IV ONE (13:30)
[2019-03-18] MEDS ORDERED: SODIUM CHLORIDE 0.9% 1,000 ML IV SCH (13:30)
[2019-03-18] MEDS ORDERED: CALCIUM GLUC 4.65meq/50ml D5AE 50 ML IV ONE (13:30)
[2019-03-18] MEDS ORDERED: HYDROmorphone HCL 2 MG/ML VL ONE (14:07)
[2019-03-18] MEDS ORDERED: LORazepam 2MG/ML-1ML VIAL IV PRN (14:45)
--- NOTE | 2019-03-18 14:45 | NUR ---
Pt being admitted to ICU TANO RIVAS admitted to ICU via gurney on bus monitor, and portable 02, ON NONREBREATHER. Patient transferred to bed, connected to ICU monitoring and oxygen, and weighed by bedscale. Patient oriented to Sandra Mortensen primary RN, unit, room, bed, and unit policies regarding patient care and visiting hours. All questions and concerns addressed, patient verbalized understanding. NOTE: NEOSYNEPHRINE INFUSING THROUGH LEFT FOREARM IV. PATIENT IS DNR/DNI AND NOT TO ADD ANY ADDITIONAL VASOPRESSOR MEDICATIONS.
[2019-03-18 15:27] LABS: Hematocrit 35.1 % (41.0-53.0); Hemoglobin 11.3 g/dL (13.5-17.5); Mean Corpuscular Hgb Conc. 32.2 g/dL (32.0-36.0); Mean Corpuscular Volume 105.6 fL (80.0-100.0); Platelet Count (auto) 106 10^3/uL (140-450); Red Blood Cells 3.32 10^6/uL (4.5-5.90); White Blood Cell 23.1 10^3/uL (4.4-10.8)
[2019-03-18 15:32] LABS: Red Cell Distribution Width 20.1 % (11.8-14.3)
[2019-03-18 15:33] LABS: Basophils % (manual) 0 (0.0-2.0); Blast Cells 0; Eosinophils % (manual) 0 (0-7); Metamyelocytes % 0; Myelocytes % 0; Promyelocytes % 0; Reactive Lymphocytes 0
--- NOTE | 2019-03-18 15:59 | NUR ---
SPOKE WITH [facility] FOR NEXT OF KIN INFORMATION PATIENTS SON IS TANO EVELYN RABAGO- [phone]
[2019-03-18 16:50] LABS: Band Neutrophils % (manual) 20; Lymphocytes % (manual) 3 (10.0-50.0); Monocytes % (manual) 4 (0-12)
[2019-03-18] MEDS ORDERED: NOREPINEPHRINE 8 MG/250ML KIT 250 ML IV ONE (17:59)
[2019-03-18] MEDS ORDERED: HYDROmorphone HCL 2 MG/ML VL IV ONE ×2 (18:00→18:45)
--- NOTE | 2019-03-18 18:00 | NUR ---
SPOKE WITH PATIENTS SON, TANO RIVAS JR WHO IS PATIENTS NEXT OF KIN, EXPLAINED CURRENT STATUS AND CLARIFIED PATIENT IS FULL DNR, COMFORT CARE ONLY. CONFIRMED WITH SECOND NURSE, SEE CHART
--- NOTE | 2019-03-18 18:28 | NUR ---
PATIENT ASYSTOLE, HOSPITALIST AT BEDSIDE TO PRONOUNCE.
--- NOTE | 2019-03-18 18:30 | NUR ---
CALLED AND LEFT MESSAGE FOR PATIENTS SON TANO TO NOTIFY PATIENT
[2019-03-18] MEDS ORDERED: HYDROmorphone HCL 2 MG/ML VL IV PRN (18:45)
[2019-03-18] MEDS ORDERED: MORPHINE SULF INJ 2 MG/ML SYRINGE 1ML IV ONE (18:45)
--- NOTE | 2019-03-18 19:00 | NUR ---
[employer] NOTIFIED ON PATIENT IS POTENTIAL CANDIDATE, REF #[id number]
--- NOTE | 2019-03-18 19:03 | NUR ---
[employer] CALLED TO NOTIFY OF AWAITING RETURN CALL
--- NOTE | 2019-03-18 20:08 | NUR ---
FAMILY CALLED PATIENT'S SON TANO AND NOTIFIED PATIENT . HE SAID THAT HE WILL TAKE 1 HOUR 30 MINUTES TO ARRIVE TO THE HOSPITAL. Addendum: 03/18/19 at 2309 by Zoraida Valentine RN TANO PHONE NUMBER [phone]
[2019-03-18] MEDS ORDERED: SODIUM ZIRCONIUM CYCL 10 GM PAK PO SCH (22:00)
[2019-03-18] MEDS ORDERED: ATORVASTATIN 20 MG TAB PO SCH (22:00)
[2019-03-18] MEDS ORDERED: SODIUM BICARBONATE 50ML VIAL 150 ML in D5W 5% 1,000 ML IV ONE (22:30)
--- NOTE | 2019-03-18 22:40 | NUR ---
HIGH SCHOOL ASSISTANT FOOTBALL COACH [employer] SCHOOL ASSISTANT FOOTBALL COACH [employer] CALLED BACK. INFORMATIONS GIVEN. BODY RELEASED BY HIGH SCHOOL ASSISTANT FOOTBALL COACH.
--- NOTE | 2019-03-18 23:45 | NUR ---
FAMILY PHONED TO PATIENT'S SON TANO TO ASK WHETHER HE IS COMING TO THE HOSPITAL. HE DIDN'T ANSWER THE PHONE. LEFT MESSAGE
--- NOTE | 2019-03-18 23:55 | NUR ---
POST MORTEM CARE POST MORTEM CARE IS GIVEN. BODY KEPT IN A BODY BAG.
--- NOTE | 2019-03-19 01:15 | NUR ---
[facility] [place] SECURITY TOOK BODY TO [facility].
[2019-03-19] MEDS ORDERED: AMIODARONE HCL 200 MG TAB PO SCH (10:00)
[2019-03-19] MEDS ORDERED: PANTOPRAZOLE 40 MG/10 ML VIAL INJ IV SCH (10:00)
== END 2019-03-18 23:46 | disposition expired ==
LOC: EDBD 22:58 → ER 22:58 → EDUNIT# 22:58 → TELE 22:59 → ICU WEST 03-18 14:45
PROVIDERS: ADMIT Nurse Practitioner; ATTEND Internal Medicine
PROC: 02HV33Z Insertion of Infusion Device into Superior Vena Cava, Percutaneous Approach (ICD-10-PCS; principal; 2019-03-18)
DX: I21.4 Non-ST elevation (NSTEMI) myocardial infarction (principal); I50.43 Acute on chronic combined systolic (congestive) and diastolic (congestive) heart failure; N17.0 Acute kidney failure with tubular necrosis; J96.20 Acute and chronic respiratory failure, unspecified whether with hypoxia or hypercapnia; K72.00 Acute and subacute hepatic failure without coma; I13.0 Hypertensive heart and chronic kidney disease with heart failure and stage 1 through stage 4 chronic kidney disease, or unspecified chronic kidney disease; E87.1 Hypo-osmolality and hyponatremia; E44.0 Moderate protein-calorie malnutrition; N18.4 Chronic kidney disease, stage 4 (severe); R57.9 Shock, unspecified; I42.9 Cardiomyopathy, unspecified; E87.5 Hyperkalemia; R57.0 Cardiogenic shock; Z66 Do not resuscitate; J44.9 Chronic obstructive pulmonary disease, unspecified; I25.10 Atherosclerotic heart disease of native coronary artery without angina pectoris; E78.5 Hyperlipidemia, unspecified; E11.22 Type 2 diabetes mellitus with diabetic chronic kidney disease; Z51.5 Encounter for palliative care; Z95.1 Presence of aortocoronary bypass graft; Z95.810 Presence of automatic (implantable) cardiac defibrillator; Z83.3 Family history of diabetes mellitus; Z87.891 Personal history of nicotine dependence; Z98.61 Coronary angioplasty status; Z82.49 Family history of ischemic heart disease and other diseases of the circulatory system; E03.9 Hypothyroidism, unspecified
CPT/HCPCS: 36415; 71045; 76700; 80053; 82140; 82962; 83880; 84132; 84484; 85007; 85025; 85027; 85610; 85730; 87081; 94640; 96365; 96375; G0378; J0610; J2405; J7060